=== PATIENT | female | born 1985 | race Caucasian/White ===

== ENCOUNTER 2017-07-27 20:37 | Emergency (ER) | payer OTHER ==
[~2017-07-27] VITALS: Ht 162.6 cm; Wt 70.3 kg
[2017-07-27 20:49] VITALS: Ht 162.6 cm; Wt 70.3 kg
[2017-07-27 22:50] VITALS: BP 103/68
== END 2017-07-27 22:50 | disposition home or self-care (01) ==
LOC: ED 20:37
DX: S06.0X9A Concussion with loss of consciousness of unspecified duration, initial encounter (principal); V29.50XA Motorcycle passenger injured in collision with unspecified motor vehicles in traffic accident, initial encounter; Y93.I9 Activity, other involving external motion; Y99.8 Other external cause status; Y92.411 Interstate highway as the place of occurrence of the external cause